=== PATIENT | female | born 1995 | race Caucasian/White ===

== ENCOUNTER 2019-06-23 18:09 | Emergency (ER) | payer OTHER | END 2019-06-23 21:25 | disposition home or self-care (01) | LOC: MED 18:09 | DX: S13.4XXA Sprain of ligaments of cervical spine, initial encounter (principal); V89.2XXA Person injured in unspecified motor-vehicle accident, traffic, initial encounter; Y93.89 Activity, other specified; Y92.89 Other specified places as the place of occurrence of the external cause; Y99.8 Other external cause status | CPT/HCPCS: 99283 ==